=== PATIENT | female | born 1980 | race Caucasian/White ===

== ENCOUNTER → 2019-01-26 | Outpatient (CLI) | payer BC | END | disposition home or self-care (01) | LOC: LABWHC1 11:13 | PROVIDERS: ATTEND Orthopaedic Surgery | DX: M79.644 Pain in right finger(s) (principal); S62.636A Displaced fracture of distal phalanx of right little finger, initial encounter for closed fracture; M20.091 Other deformity of right finger(s) | CPT/HCPCS: 36415; 82306 ==

== ENCOUNTER 2021-03-31 05:55 | Inpatient (IN) | payer BC ==
[2021-03-26 15:40] VITALS: BMI 34.0
--- NOTE | 2021-03-30 07:41 | P.HPOB ---
History of Present Illness H&P Date: 03/30/21 Chief Complaint: persistent breech presentation, for section this patient is a pleasant 41-year-old 1 para 0 female estimated date of confinement 04/03/2021 estimated gestational age 39-4/7 weeks who presents to labor and delivery for primary section due to persistent breech presentation. Patient was found to be breech at approximately 35 weeks and I did discuss options including trial of external version we are going to proceed with primary section this time. care has been complicated by advanced maternal age for which she did have a normal Materni T21 (46 X,X). She did have a normal anatomy ultrasound here and she did not desire maternal medicine evaluation. care otherwise has been uncomplicated. Review of Systems Genitourinary: Reports Menstruation: Reports amenorrhea Past Medical History Past Medical History: GERD/Reflux, Skin Disorder Additional Past Medical History / Comment(s): Ezcema. History of Any Multi-Drug Resistant Organisms: None Reported Past Surgical History: No Surgical Hx Reported Additional Past Surgical History / Comment(s): [place] teeth extracted. Past Anesthesia/Blood Transfusion Reactions: No Reported Reaction Past Psychological History: No Psychological Hx Reported Smoking Status: Never smoker Past Alcohol Use History: None Reported Additional Past Alcohol Use History / Comment(s): No alcohol during . Past Drug Use History: None Reported - Past Family History Mother Family Medical History: No Reported History Medications and Allergies Home Medications Medication Instructions Recorded Confirmed Type Pnv No.95/Ferrous Fum/Folic AC 1 each PO DAILY 03/26/21 03/26/21 History [ Multivitamin Tablet] Allergies Allergy/AdvReac Type Severity Reaction Status Date / Time Penicillins Allergy Rash/Hives Verified 03/26/21 15:44 Exam - OBG Physical Exam Abdomen: bowel sounds normal, no diffuse tenderness, no bruit present, no guarding noted, no hepatomegaly, no splenomegaly, no mass Vulva: both: normal Vagina: normal moisture, no discharge Cervix: no lesion (cervix in the office was closed), no discharge Uterus: enlarged (fundal height 39 cm) Results blood work shows she is a positive, rubella immune, RPR nonreactive, hepatitis B negative, HIV is nonreactive, Glucola was normal, ultrasounds have been normal with the exception of breech, Materni T21 was normal. Group B strep was negative Assessment and Plan Assessment: This is a pleasant 41-year-old 1 para 0 female 39-4/7 weeks gestation with persistent breech presentation who presents for primary low transverse section for delivery. Plan is primary low transverse section. I have discussed the surgery and risks with the patient and her spouse including the risks of infection, bleeding, possible injury to bowel, bladder, vessels, and/or other organs. All the patient's questions are answered and a written consent obtained. (1) 39 weeks gestation of Status: Acute Code(s): Z3A.39 - 39 WEEKS GESTATION OF SNOMED Code(s): 79291026 (2) Breech presentation Status: Acute Code(s): O32.1XX0 - MATERNAL CARE FOR BREECH PRESENTATION, UNSP SNOMED Code(s): 3975872 (3) Elderly primigravida Status: Acute Code(s): O09.519 - SUPERVISION OF ELDERLY PRIMIGRAVIDA, UNSPECIFIED TRIMESTER SNOMED Code(s): 22786198
[~2021-03-31 05:55] MED LIST: KETOROLAC 15 MG/ML 1 ML VIAL IVP PRN; LACTATED RINGERS 1,000 ML IV SCH; NALBUPHINE 10 MG/ML (1 ML AMP) IV PRN; NALOXONE 0.4 MG/ML 1 ML VIAL IV PRN; ONDANSETRON 4 MG/2 ML VIAL IVP PRN; diphenhydrAMINE 50 MG/ML 1 ML VIAL IVP PRN
[2021-03-31] MEDS: LACTATED RINGERS 1,000 ML IV SCH ×4 (06:10→13:45)
[2021-03-31] MEDS ORDERED: CITRIC ACID-SODIUM CITRATE 15 ML CUP PO ONE (06:11)
[2021-03-31] MEDS ORDERED: LACTATED RINGERS 1,000 ML IV ONE (06:11)
[2021-03-31 06:37] LABS: Basophils % (A) 0 %; Eosinophils # (A) 0.2 k/uL (0-0.7); Eosinophils % (A) 2 %; HCT 36.5 % (34.0-46.0); HGB 12.4 gm/dL (11.4-16.0); Lymphocytes # (A) 1.9 k/uL (1.0-4.8); Lymphocytes % (A) 19 %; MCH 31.1 pg (25.0-35.0); MCV 91.7 fL (80.0-100.0); Mean Platelet Volume 7.6; Monocytes # (A) 0.3 k/uL (0-1.0); Monocytes % (A) 3 %; Neutrophils # (A) 7.1 k/uL (1.3-7.7); Neutrophils % (A) 74 %; Platelet Count 211 k/uL (150-450); RBC 3.98 m/uL (3.80-5.40); RDW 13.4 % (11.5-15.5); WBC 9.6 k/uL (3.8-10.6)
[2021-03-31] MEDS ORDERED: HYDROmorphone 0.5 MG/0.5 ML SYRINGE IVP PRN (07:00)
--- NOTE | 2021-03-31 08:43 | P.OP ---
Date of Procedure: 03/31/21 Preoperative Diagnosis: #1: 39-4/7 week intrauterine . #2: Persistent breech presentation. #3: Elderly primigravida. Postoperative Diagnosis: Same Procedure(s) Performed: Primary low transverse section Anesthesia: spinal Surgeon: Jose Murdock Monotype Keyboard Operator #1: Joie Morris Estimated Blood Loss (ml): 500 Pathology: other (Placenta) Condition: stable Disposition: floor Indications for Procedure: Please see dictated H&P for intimate details of this patient's admission. Brief summary this pleasant 41-year-old 1 para 0 female 39-4/7 weeks gestation admitted to labor and delivery for primary section secondary to pers istent breech presentation. Patient and I and her partner discussed the surgery and risks and risks of infection, bleeding, possible injury bowel, bladder, vessels, and/or other organs. All the patient's questions been answered and a written consent obtained. Operative Findings: This is a vigorous viable female Apgars 9 and 9 delivery time was 0809 hrs. was double footling breech sacrum anterior. Mild meconium-stained fluid. Description of Procedure: This patient has a Santacruz catheter placed to straight drain. She is subsequently taken to the operating room where she sat up and spinal anesthetic is administered without incident. With an adequate level of anesthesia she has abdominal prep and drape. Scalpel is taken Pfannenstiel skin incision is then made. A second scalpel is taken down the fascia the fascia scored with the scalpel. Fascial incision extended bilaterally using the Aviles scissors. Fascia dissected off the rectus muscles sharply. Rectus muscles are the peritoneum identified and entered sharply. Peritoneal incision extended superior and inferior without difficulty. Bladder blade is then placed. Bladder peritoneum taken sharply off the lower uterine segment. Scalpels and taken low transverse uterine incision is then made. Using a hemostat I enter the uterine cavity bluntly and there is loss of mild light meconium-stained fluid. This incision is extended bluntly. Inspection of the uterus shows a be double footling breech sacrum anterior. Using the usual breech maneuvers the infant is delivered atraumatically. Mouth and nares are bulb suctioned. There is a nuchal cord 1. The umbilical cord is doubly clamped and cut. This is a vigorous viable female infant Apgars are 9 and 9 delivery time is 0809 hrs. Infant has spontaneous respirations and good cry. Infant is handed off to the nurses in attendance. The placenta is then manually extracted intact. Uterus is then externalized. Uterine incision demarcated with Han clamps and then closed using 0 Vicryl running locked fashion 2 layers. Excellent hemostasis is noted. Bladder peritoneum was then identified and closed using 3- 0 Vicryl. Excess fluid is removed from the abdomen and pelvis. Uterus, tubes, ovaries appear normal for term gestation. This done the uterus placed back into the abdomen. Parietal peritoneum was then closed in 0 Vicryl running fashion. Rectus muscles reapproximated in 0 Vicryl interrupted fashion. Fascia is then closed using 0 PDS. Fascial incision is intact and hemostatic. Subcutaneous tissues and closed using a 3-0 Vicryl. Skin is and closed using alex. All counts are correct 3. There are no complications. and mother are stable in the birthing suite.
[2021-03-31] MEDS ORDERED: ZOLPIDEM 5 MG TAB PO PRN (09:04)
[2021-03-31] MEDS ORDERED: OXYTOCIN 30 UNITS/500 ML NS 30 UNIT in SALINE 1 500ML.BAG IV SCH (09:04)
[2021-03-31] MEDS ORDERED: METOCLOPRAMIDE 5 MG/ML 2 ML VIAL IVP PRN (09:04)
[2021-03-31] MEDS ORDERED: diphenhydrAMINE 50 MG/ML 1 ML VIAL IVP PRN (09:04)
[2021-03-31] MEDS ORDERED: diphenhydrAMINE 25 MG CAP PO PRN (09:04)
[2021-03-31] MEDS ORDERED: LANOLIN CREAM 5 GM TUBE TOPICAL PRN (09:04)
[2021-03-31] MEDS: ACETAMINOPHEN TAB 500 MG TAB PO PRN ×2 (10:38→21:08)
[2021-03-31] MEDS: KETOROLAC 15 MG/ML 1 ML VIAL IVP SCH (16:08)
[2021-03-31] MEDS: SENNOSIDES-DOCUSATE SODIUM 1 EACH TAB PO PRN (21:08)
[2021-04-01] MEDS: KETOROLAC 15 MG/ML 1 ML VIAL IVP SCH ×2 (00:09→06:11)
[2021-04-01] MEDS: LACTATED RINGERS 1,000 ML IV SCH ×2 (03:32→11:20)
[2021-04-01] MEDS: ACETAMINOPHEN TAB 500 MG TAB PO PRN ×3 (03:39→16:00)
--- NOTE | 2021-04-01 06:36 | P.PNOBGPC ---
Subjective - Subjective Patient reports: Reports appetite normal, Reports voiding normally, Reports pain well controlled, Reports ambulating normally : doing well Objective - Vital Signs Latest vital signs: Vital Signs Temp Pulse Pulse Resp BP Pulse Ox 04/01/21 03:51 98.4 F 78 16 107/64 97 04/01/21 00:00 98.6 F 81 16 114/70 97 03/31/21 20:00 98.5 F 82 16 113/73 98 03/31/21 16:00 98.3 F 89 16 111/69 03/31/21 11:58 97.7 F 93 16 122/74 95 03/31/21 10:35 98.7 F 81 16 145/62 03/31/21 10:06 75 16 137/61 03/31/21 09:36 71 16 107/72 97 03/31/21 09:21 77 16 118/61 96 03/31/21 09:06 72 16 117/54 96 03/31/21 09:04 96 03/31/21 08:54 72 16 98 03/31/21 08:51 71 16 118/63 98 03/31/21 08:36 98.1 F 91 16 118/52 98 03/31/21 07:00 16 99 Intake and Output 03/31/21 03/31/21 04/01/21 14:59 22:59 06:59 Output Total 100 950 300 Balance -100 -950 -300 Output: Urine 100 950 300 Uretheral (Santacruz) 400 Other: Voiding Method Indwelling Catheter # Voids 2 1 - Exam Lungs: bilateral: normal Chest: Normal S1, Normal S2 Extremities: Present: normal Abdomen: Present: normal appearance, soft. Absent: distention, tenderness Incision: Present: normal, dry, intact Uterus: Present: normal, firm Assessment and Plan Assessment: Postoperative day #1. Patient is resting without complaints. Vital signs are stable she's afebrile. Uterus is firm nontender and her incision is intact and dry. My impression this is a normal post operative course. Plan is to check a CBC, encourage ambulation, allow the patient to shower, and continue routine postoperative care. (1) 39 weeks gestation of Current Visit: No Status: Acute Code(s): Z3A.39 - 39 WEEKS GESTATION OF SNOMED Code(s): 94635265 (2) Breech presentation Current Visit: No Status: Acute Code(s): O32.1XX0 - MATERNAL CARE FOR BREECH PRESENTATION, UNSP SNOMED Code(s): 4165211 (3) Elderly primigravida Current Visit: No Status: Acute Code(s): O09.519 - SUPERVISION OF ELDERLY PRIMIGRAVIDA, UNSPECIFIED TRIMESTER SNOMED Code(s): 69740550
[2021-04-01] MEDS ORDERED: NALBUPHINE 10 MG/ML (1 ML AMP) ONE (07:51)
[2021-04-01] MEDS ORDERED: KETOROLAC 15 MG/ML 1 ML VIAL ONE (07:51)
[2021-04-01] MEDS ORDERED: MORPHINE SULFATE (PF) 0.3 MG/0.3 ML SYR ONE (07:51)
[2021-04-01] MEDS ORDERED: OXYTOCIN 30 UNITS/500 ML NS BAG IV ONE (07:51)
[2021-04-01] MEDS ORDERED: ONDANSETRON 4 MG/2 ML VIAL ONE (07:51)
[2021-04-01 07:52] LABS: Basophils % (A) 0 %; Eosinophils # (A) 0.2 k/uL (0-0.7); Eosinophils % (A) 3 %; HCT 32.1 % (34.0-46.0); Lymphocytes # (A) 0.9 k/uL (1.0-4.8); Lymphocytes % (A) 11 %; MCH 31.7 pg (25.0-35.0); MCHC 34.2 g/dL (31.0-37.0); MCV 92.7 fL (80.0-100.0); Mean Platelet Volume 7.4; Monocytes # (A) 0.3 k/uL (0-1.0); Monocytes % (A) 4 %; Neutrophils # (A) 6.8 k/uL (1.3-7.7); Neutrophils % (A) 82 %; Platelet Count 161 k/uL (150-450); RBC 3.46 m/uL (3.80-5.40); RDW 13.4 % (11.5-15.5); WBC 8.4 k/uL (3.8-10.6)
--- NOTE | 2021-04-01 09:36 | P.PN ---
Progress Note - Text Progress Note Date: 04/01/21 Ms. Pastor is a 41-year-old female had a history of under spinal a nalgesia with Astramorph 300 g for postop pain. Today patient is comfortable sitting in her bed. She had mild itching over her extremities yesterday . Today patient rated her pain level 3 out of 10 in severity. Denied any fever, drowsiness, confusion. Denied any weakness, tingling sensation in her lower extremities. Denied any bowel or bladder problems. Moving all extremities without any difficulty. Able to walk without any difficulties. Vitals: Hemodynamically stable Continue oral pain medication as per primary team.
[2021-04-01] MEDS: IBUPROFEN 600 MG TAB PO PRN ×2 (13:21→19:30)
[2021-04-01] MEDS: SENNOSIDES-DOCUSATE SODIUM 1 EACH TAB PO PRN (20:22)
[2021-04-02] MEDS: ACETAMINOPHEN TAB 500 MG TAB PO PRN ×2 (00:16→07:41)
[2021-04-02] MEDS: IBUPROFEN 600 MG TAB PO PRN ×2 (03:44→12:04)
--- NOTE | 2021-04-02 06:30 | P.PNOBGPC ---
Subjective - Subjective Patient reports: Reports appetite normal, Reports voiding normally, Reports pain well controlled, Reports ambulating normally : doing well Objective - Vital Signs Latest vital signs: Vital Signs Temp Pulse Resp BP Pulse Ox 04/02/21 00:00 98.0 F 65 16 127/71 98 04/01/21 16:00 97.8 F 89 16 116/68 96 04/01/21 08:00 97.8 F 100 16 108/68 98 - Exam Lungs: bilateral: normal Chest: Normal S1, Normal S2 Extremities: Present: normal Abdomen: Present: normal appearance, soft. Absent: distention, tenderness Incision: Present: normal, dry, intact Uterus: Present: normal, firm - Labs Labs: Abnormal Lab Results - Last 24 Hours (Table) 04/01/21 Range/Units 07:17 RBC 3.46 L (3.80-5.40) m/uL Hgb 11.0 L (11.4-16.0) gm/dL Hct 32.1 L (34.0-46.0) % Lymphocytes # 0.9 L (1.0-4.8) k/uL Assessment and Plan Assessment: Postoperative day #2. Patient continues to well without complaints and wishes to go home. Vital signs are stable and she is afebrile. Uterus is firm nontender and her incision is intact and dry. CBC from yesterday was normal. My impression this is a normal postoperative course. Patient appears to be stable for discharge home therefore we discharge home later today. (1) 39 weeks gestation of Current Visit: No Status: Acute Code(s): Z3A.39 - 39 WEEKS GESTATION OF SNOMED Code(s): 56735091 (2) Breech presentation Current Visit: No Status: Acute Code(s): O32.1XX0 - MATERNAL CARE FOR BREECH PRESENTATION, UNSP SNOMED Code(s): 0712058 (3) Elderly primigravida Current Visit: No Status: Acute Code(s): O09.519 - SUPERVISION OF ELDERLY PRIMIGRAVIDA, UNSPECIFIED TRIMESTER SNOMED Code(s): 56396232
--- NOTE | 2021-04-02 06:37 | P.DS ---
Providers Date of admission: 03/31/21 05:55 Expected date of discharge: 04/02/21 Attending physician: Jose Murdock Primary care physician: Stated None - Discharge Diagnosis(es) (1) 39 weeks gestation of Current Visit: No Status: Acute (2) Breech presentation Current Visit: No Status: Acute (3) Elderly primigravida Current Visit: No Status: Acute Hospital Course: Please see dictated H&P for intimate details of this patient's admission. Brief summary this is a pleasant 41-year-old 1 para 0 female 39-4/7 weeks gestation admitted for primary section secondary to persistent breech. Patient undergoes above-named surgery for viable female infant. Please see dictated operative note. Postoperatively does well and on postoperative 2 she is felt to be stable for discharge home follow up with me in 1 week. Procedures: Primary low transverse section Patient Condition at Discharge: Good Plan - Discharge Summary Discharge Rx Participant: Yes New Discharge Prescriptions: New Ibuprofen [Motrin] 600 mg PO Q6H PRN #30 tab PRN Reason: Pain oxyCODONE HCL [OxyIR] 5 mg PO Q4HR PRN #18 tab PRN Reason: Pain No Action Pnv No.95/Ferrous Fum/Folic AC [ Multivitamin Tablet] 1 each PO DAILY Discharge Medication List Pnv No.95/Ferrous Fum/Folic AC [ Multivitamin Tablet] 1 each PO DAILY 03/26/21 [History] Ibuprofen [Motrin] 600 mg PO Q6H PRN #30 tab 04/02/21 [Rx] oxyCODONE HCL [OxyIR] 5 mg PO Q4HR PRN #18 tab 04/02/21 [Rx] Follow up Appointment(s)/Referral(s): Jose Murdock MD [STAFF PHYSICIAN] - 05/14/21 11:15 am (Please see me for an incision check on 04-07-2021 @ 1:30 p.m.) Patient Instructions/Handouts: (DC) Activity/Diet/Wound Care/Special Instructions: No strenuous activities or heavy lifting for 6 weeks. No intercourse or anything per vagina for 6 weeks. Please call if any fever, chills, excessive vaginal bleeding, and/or abdominal pain. Discharge Disposition: HOME SELF-CARE
[2021-04-02] MEDS: SENNOSIDES-DOCUSATE SODIUM 1 EACH TAB PO PRN (07:40)
[2021-04-02 07:50] VITALS: BP 121/76; PULSE 71; RESP 18; TEMP 98.3
== END 2021-04-02 14:20 | disposition home or self-care (01) | DRG 788 ==
LOC: 4FBP 05:55
PROVIDERS: ADMIT Obstetrics & Gynecology; ATTEND Obstetrics & Gynecology
PROC: 10D00Z1 Extraction of Products of Conception, Low, Open Approach (ICD-10-PCS; principal; 2021-03-31 08:00)
DX: O32.8XX0 Maternal care for other malpresentation of fetus, not applicable or unspecified (principal); O77.0 Labor and delivery complicated by meconium in amniotic fluid; O69.81X0 Labor and delivery complicated by cord around neck, without compression, not applicable or unspecified; K21.9 Gastro-esophageal reflux disease without esophagitis; O99.62 Diseases of the digestive system complicating childbirth; O99.72 Diseases of the skin and subcutaneous tissue complicating childbirth; Z3A.39 39 weeks gestation of pregnancy; L30.9 Dermatitis, unspecified; Z37.0 Single live birth; Z88.0 Allergy status to penicillin
CPT/HCPCS: 85025; 86850; 86900; 86901

== ENCOUNTER 2022-04-30 05:56 | Inpatient (IN) | payer BC ==
--- NOTE | 2022-04-29 08:04 | P.HPOB ---
History of Present Illness H&P Date: 04/29/22 Chief Complaint: Repeat C/S and desires permanent sterilization. This patient is a pleasant 42 yr female EDC 05/04/2022 estimated gestational age 39 3/7 weeks who presents to L&D for repeat section and also requesting tubal ligation. has been complicated by advanced maternal age. Patient did not desire MFM evaluation, but did have normal free cell DNA testing (46 X,Y), normal anatomy ultrasounds, and normal testing. Patients 1st resulted in a C/S due to breech presentation and she desires repeat. She is done having children and she and her desire tubal ligation. Review of Systems Genitourinary: Reports Menstruation: Reports amenorrhea Past Medical History Past Medical History: Skin Disorder Additional Past Medical History / Comment(s): Ezcema History of Any Multi-Drug Resistant Organisms: None Reported Past Surgical History: Section Additional Past Surgical History / Comment(s): [place] teeth extracted Past Anesthesia/Blood Transfusion Reactions: No Reported Reaction Past Psychological History: No Psychological Hx Reported Smoking Status: Never smoker Past Alcohol Use History: None Reported Additional Past Alcohol Use History / Comment(s): No alcohol during . Past Drug Use History: None Reported - Past Family History Mother Family Medical History: No Reported History Medications and Allergies Home Medications Medication Instructions Recorded Confirmed Type Pnv No.95/Ferrous Fum/Folic AC 1 each PO DAILY 03/26/21 03/31/21 History [ Multivitamin Tablet] Ibuprofen [Motrin] 600 mg PO Q6H PRN #30 tab 04/02/21 Rx oxyCODONE HCL [OxyIR] 5 mg PO Q4HR PRN #18 tab 04/02/21 Rx Allergies Allergy/AdvReac Type Severity Reaction Status Date / Time Penicillins Allergy Rash/Hives Verified 03/31/21 06:08 Exam - OBG Physical Exam Abdomen: bowel sounds normal, no diffuse tenderness, no bruit present, no guarding noted, no hepatomegaly, no splenomegaly, no mass Vulva: both: normal Vagina: normal moisture, no discharge Cervix: no lesion, no discharge Uterus: enlarged (Fundal height was 39 cm) Results labs: A positive, Rubella Immune, CMK-TvnQ-HMW neg, Glucola 97, Materni T21 46 X,Y. GBS negative. Last ultrasound showed EFW 7#6oz (>90%). Assessment and Plan Assessment: This is a pleasant 42 yr female 39 3/7 weeks gestation with previous section who desires repeat C/S and is also requesting permanent sterilization. Plan is repeat CS and bilateral partial salpingectomy. She understands that a tubal ligation is permanent, however does have a failure of <09/999 procedures done. She also understands that surgery itself has risks including infection, bleeding, possible injury to bowel/bladder vessels and or other organs. All of her questions were answered and a written consent obtained. (1) Elderly multigravida Status: Acute Code(s): O09.529 - SUPERVISION OF ELDERLY MULTIGRAVIDA, UNSPECIFIED TRIMESTER SNOMED Code(s): 082290155 (2) Previous delivery affecting Status: Acute Code(s): O34.219 - MATERNAL CARE FOR UNSP TYPE SCAR FROM PREVIOUS DEL SNOMED Code(s): 031829525 (3) Family planning Status: Acute Code(s): Z30.09 - ENCOUNTER FOR OT GENERAL CNSL AND ADVICE ON CONTRACEPTION SNOMED Code(s): 834552100 (4) 39 weeks gestation of Status: Acute Code(s): Z3A.39 - 39 WEEKS GESTATION OF SNOMED Code(s): 92937296
[2022-04-30] MEDS ORDERED: CITRIC ACID-SODIUM CITRATE 15 ML CUP PO ONE (06:24)
[2022-04-30] MEDS ORDERED: LACTATED RINGERS 1,000 ML IV SCH (06:24)
[2022-04-30] MEDS ORDERED: LACTATED RINGERS 1,000 ML IV ONE (06:24)
[2022-04-30 07:11] LABS: Basophils % (A) 1 %; Eosinophils # (A) 0.1 k/uL (0-0.7); Eosinophils % (A) 2 %; HCT 35.5 % (34.0-46.0); HGB 12.3 gm/dL (11.4-16.0); Lymphocytes # (A) 1.5 k/uL (1.0-4.8); Lymphocytes % (A) 19 %; MCH 30.9 pg (25.0-35.0); MCHC 34.5 g/dL (31.0-37.0); MCV 89.7 fL (80.0-100.0); Mean Platelet Volume 8.6; Monocytes # (A) 0.4 k/uL (0-1.0); Monocytes % (A) 5 %; Neutrophils # (A) 5.7 k/uL (1.3-7.7); Neutrophils % (A) 73 %; Platelet Count 178 k/uL (150-450); RBC 3.96 m/uL (3.80-5.40); RDW 13.8 % (11.5-15.5); WBC 7.8 k/uL (3.8-10.6)
[2022-04-30] MEDS ORDERED: HYDROmorphone (PF) 10 MG/ML VIAL ONE (07:45)
[2022-04-30] MEDS ORDERED: ONDANSETRON 4 MG/2 ML VIAL ONE (07:45)
[2022-04-30] MEDS ORDERED: KETOROLAC 15 MG/ML 1 ML VIAL ONE (07:45)
[2022-04-30] MEDS ORDERED: MORPHINE SULFATE (PF) 0.3 MG/0.3 ML SYR ONE (07:45)
[2022-04-30] MEDS ORDERED: NALBUPHINE 10 MG/ML (1 ML AMP) ONE (07:45)
[2022-04-30] MEDS ORDERED: diphenhydrAMINE 25 MG CAP PO PRN (08:43)
[2022-04-30] MEDS ORDERED: ZOLPIDEM 5 MG TAB PO PRN (08:43)
[2022-04-30] MEDS ORDERED: METOCLOPRAMIDE 5 MG/ML 2 ML VIAL IVP PRN (08:43)
[2022-04-30] MEDS ORDERED: ONDANSETRON 4 MG/2 ML VIAL IVP PRN (08:43)
[2022-04-30] MEDS ORDERED: NALOXONE 0.4 MG/ML 1 ML VIAL IV PRN (08:43)
[2022-04-30] MEDS ORDERED: diphenhydrAMINE 50 MG/ML 1 ML VIAL IVP PRN (08:43)
[2022-04-30] MEDS ORDERED: OXYTOCIN 30 UNITS/500 ML NS 30 UNIT in SALINE 1 500ML.BAG IV SCH (08:43)
[2022-04-30] MEDS ORDERED: LANOLIN CREAM 5 GM TUBE TOPICAL PRN (08:43)
[2022-04-30] MEDS ORDERED: SIMETHICONE 80 MG CHEWABLE PO PRN (08:43)
--- NOTE | 2022-04-30 08:46 | P.OP ---
Date of Procedure: 04/30/22 Preoperative Diagnosis: #1:39-3/7 week intrauterine . #2: Previous section desires repeat. #3: Multi parity desires permanent sterilization.#4: Elderly multiparous Postoperative Diagnosis: same Procedure(s) Performed: Repeat section and bilateral partial salpingectomy. Anesthesia: spinal Surgeon: Jose Murdock Director Clinical Operations #1: Phyllis Calderon Estimated Blood Loss (ml): 400 Pathology: other (placenta and bilateral fallopian tube segments) Condition: stable Disposition: floor Indications for Procedure: Please see dictated H&P for intimate details of this patient's admission. In brief summary this is a pleasant 42-year-old 2 para 1 female 39-3/7 weeks gestation who is admitted to labor and delivery for elective repeat section and also requesting permanent sterilization. Patient does understand that a tubal ligation is considered permanent however there is a failure rate of less than 5 per thousand procedures done. She also understands surgery itself and apparently has risks including risks of infection, bleeding, possible injury bowel, bladder, vessels, and/or other organs. All the patient's questions are answered and a written consent is obtained. Operative Findings: This was a vigorous viable male Apgars 9 and 9 delivery time is 0809 hrs. grossly appeared normal. The uterus, tubes, ovaries appear normal for term gestation. Description of Procedure: This patient is taken to the operating room where she is sat up and spinal anesthetic is administered without incident. A Santacruz catheter had previously been placed to straight drain. The appropriate timeout is done. With an adequate level of anesthesia she has an abdominal prep and drape. Scalpel is then taken the previous Pfannenstiel incision is incised. I did excise the old scar. A second scalpel is taken down to the fascia and the fascia scored with a knife. Fascial incision extended bilaterally without difficulty. Fascia is then dissected off the rectus muscles. Rectus muscles are the peritoneum was identified and entered sharply. Peritoneal incision extended superior and inferior without difficulty. Bladder blade is then placed. Bl adder peritoneum was then taken sharply off the lower uterine segment. Scalpels and taken a low transverse uterine incision is then made. Using a hemostat I into the uterine cavity bluntly and there is loss of clear fluid. This incision is extended bluntly. The infant's head is then guided gently through the incision with fundal pressure. Mouth and nares are bulb suctioned. There is no evidence of a nuchal cord. With more fundal pressure we then deliver the rest this 's body. This is a vigorous viable male infant Apgars are 9 and 9 delivery time is 0809 hrs. After delivery of the infant the umbilical cords doubly clamped and cut is handed off to the nurses in attendance. The placenta is then manually removed intact. Uterus is then externalized and uterine incision demarcated with Han clamps. Uterine incision is then closed using 0 Vicryl running locked fashion 2 layers. Excellent hemostasis is noted then turned my attention to the left fallopian tube and approximately 4 cm from the cornual insertion a small window is made to the mesial salpinx with Bovie cautery. Using a 2-0 silk I doubly ligate a 2 cm segment of the fallopian tube this is excised and handed off to pathology. The tubal ends are cauterized. A similar technique is done on the right side with similar results. With excellent hemostasis noted excess fluid is then removed from the abdomen and pelvis. Uterus is placed back into the abdomen. Final inspection of the incision and the tubal ostia shows him to be hemostatic. The parietal peritoneum was then closed using 0 Vicryl running fashion. Rectus muscles reapproximated in 0 Vicryl interrupted fashion. Fascia is then closed using 0 PDS. Fascial incision is intact and hemostatic. The subcutaneous tissues and closed using a 3-0 Vicryl. Skin is and closed using alex. All counts are correct 3. There are no complications. Infant and mother are stable delivery room.
[2022-04-30] MEDS: LACTATED RINGERS 1,000 ML IV SCH ×2 (09:22→20:06)
[2022-04-30] MEDS: SENNOSIDES-DOCUSATE SODIUM 1 EACH TAB PO SCH ×2 (11:24→20:12)
[2022-04-30] MEDS: KETOROLAC 15 MG/ML 1 ML VIAL IVP SCH (14:42)
[2022-04-30] MEDS: ACETAMINOPHEN TAB 500 MG TAB PO SCH ×2 (20:05→20:07)
[2022-04-30] MEDS: IBUPROFEN 600 MG TAB PO SCH (20:05)
[2022-05-01] MEDS: KETOROLAC 15 MG/ML 1 ML VIAL IVP SCH ×3 (00:06→14:25)
[2022-05-01] MEDS: ACETAMINOPHEN TAB 500 MG TAB PO SCH ×4 (04:36→23:56)
[2022-05-01] MEDS: IBUPROFEN 600 MG TAB PO SCH ×4 (06:29→21:10)
[2022-05-01 06:49] LABS: Basophils % (A) 0 %; Eosinophils # (A) 0.2 k/uL (0-0.7); Eosinophils % (A) 3 %; HCT 33.1 % (34.0-46.0); HGB 11.5 gm/dL (11.4-16.0); Lymphocytes # (A) 0.7 k/uL (1.0-4.8); Lymphocytes % (A) 9 %; MCH 31.6 pg (25.0-35.0); MCHC 34.7 g/dL (31.0-37.0); Mean Platelet Volume 7.6; Monocytes # (A) 0.5 k/uL (0-1.0); Monocytes % (A) 7 %; Neutrophils # (A) 6.1 k/uL (1.3-7.7); Neutrophils % (A) 80 %; Platelet Count 131 k/uL (150-450); RBC 3.64 m/uL (3.80-5.40); RDW 13.4 % (11.5-15.5); WBC 7.6 k/uL (3.8-10.6)
--- NOTE | 2022-05-01 07:10 | P.PNOBGPC ---
Subjective - Subjective Patient reports: Reports appetite normal, Reports voiding normally, Reports pain well controlled, Reports ambulating normally : doing well Objective - Vital Signs Latest vital signs: Vital Signs Temp Pulse Resp BP Pulse Ox 05/01/22 04:00 98.1 F 76 16 121/64 05/01/22 00:00 98.1 F 79 16 143/79 04/30/22 20:00 98.2 F 84 16 127/70 04/30/22 16:00 98.7 F 88 16 138/71 99 04/30/22 10:47 75 16 118/68 04/30/22 10:17 78 16 118/69 98 04/30/22 09:43 98.1 F 69 16 117/72 96 04/30/22 09:31 73 16 127/63 96 04/30/22 09:17 78 16 119/63 95 04/30/22 09:02 77 16 110/56 95 04/30/22 08:47 82 16 127/52 96 Intake and Output 04/30/22 05/01/22 05/01/22 22:59 06:59 14:59 Output Total 800 Balance -800 Output: Urine 800 - Exam Lungs: bilateral: normal Chest: Normal S1, Normal S2 Extremities: Present: normal Abdomen: Present: normal appearance, soft. Absent: distention, tenderness Incision: Present: normal, dry, intact Uterus: Present: normal, firm - Labs Labs: Abnormal Lab Results - Last 24 Hours (Table) 05/01/22 Range/Units 06:22 RBC 3.64 L (3.80-5.40) m/uL Hct 33.1 L (34.0-46.0) % Plt Count 131 L (150-450) k/uL Lymphocytes # 0.7 L (1.0-4.8) k/uL Assessment and Plan Assessment: Postoperative day #1. Patient is resting without new complaints. Vital signs are stable and she is afebrile. Uterus is firm nontender and she is having normal lochia. CBC shows a hemoglobin of 11.5. Patient's ambulating and urinating without difficulty. Plan today is to continue postoperative care, encourage ambulation. Allow the patient to shower. (1) Elderly multigravida Current Visit: No Status: Acute Code(s): O09.529 - SUPERVISION OF ELDERLY MULTIGRAVIDA, UNSPECIFIED TRIMESTER SNOMED Code(s): 127278025 (2) Previous delivery affecting Current Visit: No Status: Acute Code(s): O34.219 - MATERNAL CARE FOR UNSP TYPE SCAR FROM PREVIOUS DEL SNOMED Code(s): 669907741 (3) Family planning Current Visit: No Status: Acute Code(s): Z30.09 - ENCOUNTER FOR OTH GENERAL CNSL AND ADVICE ON CONTRACEPTION SNOMED Code(s): 350469772 (4) 39 weeks gestation of Current Visit: No Status: Acute Code(s): Z3A.39 - 39 WEEKS GESTATION OF SNOMED Code(s): 33356424
[2022-05-01] MEDS: SENNOSIDES-DOCUSATE SODIUM 1 EACH TAB PO SCH ×2 (08:38→21:07)
--- NOTE | 2022-05-01 14:56 | P.PN ---
Progress Note - Text Progress Note Date: 05/01/22 Patient doing well. Pain controlled. Denies headache. Ambulating w/o weakness or paresthesia. Denies pruritis. Back - spinal site c/d A/P POD#1 s/p w/ spinal duramorph - doing well
[2022-05-02] MEDS: IBUPROFEN 600 MG TAB PO SCH ×2 (03:24→09:29)
[2022-05-02] MEDS: ACETAMINOPHEN TAB 500 MG TAB PO SCH (06:06)
--- NOTE | 2022-05-02 07:15 | P.PNOBGPC ---
Subjective - Subjective Patient reports: Reports appetite normal, Reports voiding normally, Reports pain well controlled, Reports ambulating normally : doing well Objective - Vital Signs Latest vital signs: Vital Signs Temp Pulse Resp BP Pulse Ox 05/02/22 00:00 97.9 F 68 16 126/69 05/01/22 16:00 98.0 F 80 18 137/74 99 05/01/22 12:00 98.4 F 82 18 112/64 99 05/01/22 08:00 97.8 F 72 18 122/65 98 Intake and Output 05/01/22 05/02/22 05/02/22 22:59 06:59 14:59 Other: # Voids 2 1 - Exam Lungs: bilateral: normal Chest: Normal S1, Normal S2 Extremities: Present: normal Abdomen: Present: normal appearance, soft. Absent: distention, tenderness Incision: Present: normal, dry, intact Uterus: Present: normal, firm Assessment and Plan Assessment: Post operative day #2. Patient is resting without complaints. Vital signs are stable and she is afebrile. Uterus is firm nontender and she is having normal lochia. Incision is intact and dry. My impression, this is a normal postoperative course. Plan is to continue routine postoperative care and discharge home later today (1) Elderly multigravida Current Visit: No Status: Acute Code(s): O09.529 - SUPERVISION OF ELDERLY MULTIGRAVIDA, UNSPECIFIED TRIMESTER SNOMED Code(s): 580407815 (2) Previous delivery affecting Current Visit: No Status: Acute Code(s): O34.219 - MATERNAL CARE FOR UNSP TYPE SCAR FROM PREVIOUS DEL SNOMED Code(s): 645009230 (3) Family planning Current Visit: No Status: Acute Code(s): Z30.09 - ENCOUNTER FOR OTH GENERAL CNSL AND ADVICE ON CONTRACEPTION SNOMED Code(s): 530703515 (4) 39 weeks gestation of Current Visit: No Status: Acute Code(s): Z3A.39 - 39 WEEKS GESTATION OF SNOMED Code(s): 74512848
--- NOTE | 2022-05-02 07:21 | P.DS ---
Providers Date of admission: 04/30/22 05:56 Expected date of discharge: 05/02/22 Attending physician: Jose Murdock Primary care physician: Stated None - Discharge Diagnosis(es) (1) Elderly multigravida Current Visit: No Status: Acute (2) Previous delivery affecting Current Visit: No Status: Acute (3) Family planning Current Visit: No Status: Acute (4) 39 weeks gestation of Current Visit: No Status: Acute Hospital Course: Please see dictated H&P for intimate details of this patient's admission. Brief summary this is a pleasant 42-year-old 2 para 1 female 39-3/7 weeks gestation admitted to labor and delivery for elective repeat section and also requesting permanent sterilization. Patient is admitted undergoes a repeat low transverse section and bilateral partial salpingectomy. Please see dictated operative note. Postoperatively patient does well and on postoperative 20 stable for discharge home follow up with me in 1 week. Procedures: Repeat low transverse section and bilateral partial salpingectomy Patient Condition at Discharge: Good Plan - Discharge Summary New Discharge Prescriptions: New Ibuprofen [Motrin] 600 mg PO Q6H #30 tab oxyCODONE HCL [OxyIR] 5 mg PO Q4HR PRN #18 tab PRN Reason: Pain Scale 4 - 6 No Action Pnv No.95/Ferrous Fum/Folic AC [ Multivitamin Tablet] 1 each PO DAILY Omeprazole Magnesium [PriLOSEC OTC] 20 mg PO DAILY PRN PRN Reason: Heartburn Discharge Medication List Pnv No.95/Ferrous Fum/Folic AC [ Multivitamin Tablet] 1 each PO DAILY 03/26/21 [History] Omeprazole Magnesium [PriLOSEC OTC] 20 mg PO DAILY PRN 04/30/22 [History] Ibuprofen [Motrin] 600 mg PO Q6H #30 tab 05/01/22 [Rx] oxyCODONE HCL [OxyIR] 5 mg PO Q4HR PRN #18 tab 05/01/22 [Rx] Follow up Appointment(s)/Referral(s): Jose Murdock MD [STAFF PHYSICIAN] - 06/07/22 8:45 am (Please see me for an incision check on 05-10-22 at 1:30) Patient Instructions/Handouts: (DC) Activity/Diet/Wound Care/Special Instructions: No heavy lifting or strenuous activity for 6 weeks. No intercourse or anything per vagina for 6 weeks. Please call if any fever, chills, excessive vaginal bleeding, and/or abdominal pain. Discharge Disposition: HOME SELF-CARE
[2022-05-02 08:05] VITALS: BP 121/64; PULSE 72; RESP 20; TEMP 98
[2022-05-02] MEDS: SENNOSIDES-DOCUSATE SODIUM 1 EACH TAB PO SCH (09:37)
== END 2022-05-02 10:50 | disposition home or self-care (01) | DRG 785 ==
LOC: 4FBP 05:56
PROVIDERS: ADMIT Obstetrics & Gynecology; ATTEND Obstetrics & Gynecology
PROC: 0UB70ZZ Excision of Bilateral Fallopian Tubes, Open Approach (ICD-10-PCS; 2022-04-30)
PROC: 10D00Z1 Extraction of Products of Conception, Low, Open Approach (ICD-10-PCS; principal; 2022-04-30 08:00)
DX: O34.211 Maternal care for low transverse scar from previous cesarean delivery (principal); O32.1XX0 Maternal care for breech presentation, not applicable or unspecified; Z30.2 Encounter for sterilization; Z37.0 Single live birth; Z3A.39 39 weeks gestation of pregnancy; Z88.0 Allergy status to penicillin
CPT/HCPCS: 85025; 86850; 86900; 86901; 88302; 88307